=== PATIENT | male | born 1990 | race Caucasian/White ===

== ENCOUNTER 2020-09-30 12:54 | Emergency (ER) | payer OTHER ==
[~2020-09-30 12:54] MED LIST: PROTONIX 40MG T40 MG PO; VOLTAREN **OUT75 MG PO
[2020-09-30] MEDS ORDERED: MEDROL 4MG DOSEP4 MG PO ×2 (16:22→16:40)
[2020-09-30] MEDS ORDERED: ROBAXIN750 MG PO ×2 (16:22→16:40)
[2020-09-30] MEDS ORDERED: PERCOCET 5-3251 EACH PO ×2 (16:22→16:40)
== END 2020-09-30 13:41 | disposition home or self-care (01) ==
LOC: FER 12:54
DX: M51.26 Other intervertebral disc displacement, lumbar region (principal); M51.36 Other intervertebral disc degeneration, lumbar region
CPT/HCPCS: 72131; J7512